=== PATIENT | female | born 1970 | race Caucasian/White ===

== ENCOUNTER 2019-03-05 17:57 | Observation (INO) ==
[2019-03-05] MEDS ORDERED: Acetaminophen 325 MG TABLET PO PRN (22:37)
[2019-03-06] MEDS ORDERED: Naloxone 0.4 MG/ML INJ IVP PRN ×2 (01:00→11:02)
[2019-03-06] MEDS ORDERED: 0.9 % Sodium Chloride 1,000 ML IVC SCH ×2 (01:00→11:02)
[2019-03-06] MEDS ORDERED: Ondansetron 4 MG/2 ML VIAL IVP PRN ×2 (01:01→11:02)
[2019-03-06 02:11] LABS: Hematocrit 36.2 % (35.3-44.9); Mean Corpuscular HGB Conc 35.6 g/dL (31.6-35.5); Mean Corpuscular Hemoglobin 32.7 pg (28.0-33.3); Mean Corpuscular Volume 91.9 fL (83.0-100.0); Mean Platelet Volume 9.4 fL (9.4-12.4); Platelet Count 264 K/mcL (140-400); Red Blood Count 3.94 M/mcL (3.82-4.97); Red Cell Distribution Width 12.2 % (11.5-14.5); White Blood Count 6.8 K/mcL (4.3-11.1)
[2019-03-06 02:13] LABS: Hemoglobin 12.9 g/dL (11.5-15.4)
[2019-03-06 02:32] LABS: Calcium 8.8 mg/dL (8.6-10.3); Phosphorous 2.8 mg/dL (2.7-4.5); Potassium 3.4 mEq/L (3.5-5.1)
[2019-03-06] MEDS ORDERED: Isovue-300 50ML VIAL ONE (07:51)
[2019-03-06] MEDS ORDERED: cefTRIAXone 1,000 MG in 0.9 % Sodium Chloride Mini Bag 100 ML IVPB ONE (07:52)
[2019-03-06] MEDS ORDERED: *HR* Midazolam HCl 2 MG/2 ML VIAL ONE (08:57)
[2019-03-06] MEDS ORDERED: *HR* Propofol 200 MG/20 ML VIAL IVP ONE (08:57)
[2019-03-06] MEDS ORDERED: Dexamethasone 4 MG/ML VIAL ONE (08:57)
[2019-03-06] MEDS ORDERED: *HR* FentaNYL (PF) 100 MCG/2 ML VIAL ONE (08:57)
[2019-03-06] MEDS ORDERED: Ondansetron 4 MG/2 ML VIAL ONE (08:57)
[2019-03-06] MEDS ORDERED: Lidocaine -MPF 2% 2 ML VIAL ONE (08:57)
[2019-03-06] MEDS ORDERED: *HR* OxyCODONE Immed Rel 5 MG TABLET PO PRN (09:07)
[2019-03-06] MEDS ORDERED: *HR* HYDROmorphone (PF) 1 MG/ML SYRINGE IVP PRN (09:07)
[2019-03-06] MEDS ORDERED: Acetaminophen IV 1,000 MG/100 ML INFUS..BTL ONE (09:17)
[2019-03-06] MEDS ORDERED: Acetaminophen 325 MG TABLET PO PRN (11:02)
[2019-03-06 13:12] VITALS: BP 126/76
== END 2019-03-06 14:48 | disposition home or self-care (01) ==
LOC: 3ANU
PROVIDERS: ADMIT Internal Medicine; ATTEND Internal Medicine